=== PATIENT | female | born 1990 | race Caucasian/White ===

== ENCOUNTER 2017-01-15 14:08 | Emergency (ER) | payer SELFPAY ==
--- NOTE | 2017-01-15 15:13 | DIAGNOSTIC IMAGING REPORT ---
PROCEDURE: XR ANKLE 3 OR 4 VIEWS - LEFT INDICATION: TRAUMA/INJURY TECHNIQUE: Four views. COMPARISON: None. FINDINGS: No fracture or dislocation. Normal ankle mortise. Mild soft tissue swelling laterally. IMPRESSION: 1. Soft tissue swelling laterally.
--- NOTE | 2017-01-15 15:21 | ED CLINICAL REPORT ---
Clinical Report - Physicians/Mid Levels [facility] [address] [place] [address] 01/15/2017 14:10 [id number] Time Seen: 14:14 Jan 15 2017. Arrived- By private vehicle. Historian- patient. HISTORY OF PRESENT ILLNESS Chief Complaint: Injury to the left ankle. 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 The patient sustained a twisting injury. Patient is experiencing mild pain. Patient denies injury to the head or neck. (Twisting injury a few days prior to arrival. Reports pain and swelling. Has been elevating using ice. Has been utilizing a boot from the family. Reports a prior injury to the ankle. Pain worsens with ambulation. Reports swelling and ecchymosis has persisted.). REVIEW OF SYSTEMS The patient complains of pain on weight bearing. No tingling. All systems otherwise negative, except as recorded above. PAST HISTORY The patient has not had a prior injury to the same area. Problems: Bartholin's Abscess. Medications: None. Allergies: None. SOCIAL HISTORY Smoker- current status unknown. No drug use. ADDITIONAL NOTES The nursing notes have been reviewed. PHYSICAL EXAM Vital Signs: 01/15/2017 14:22 BP: 133/91. HR: 104. RR: 18. O2 saturation: 98%. Temp: 98.3 F. Appearance: Alert. No acute distress. Head: Head atraumatic. Eyes: Eyes normal inspection. ENT: Ears normal. CVS: Normal heart rate and rhythm. Heart sounds normal. Respiratory: No respiratory distress. Breath sounds normal. No accessory muscle use. Abdomen: No visible injury. Soft. Skin: Skin intact. Skin warm. Extremities: Left leg. No tenderness or laceration. Left medial ankle. No tenderness or laceration. Left anterior ankle: mild tenderness and swelling. Left posterior ankle. No tenderness or laceration. Left lateral ankle: moderate tenderness and swelling and small ecchymosis of the lateral ligaments. Joint effusion present. No ligamentous laxity present. No deformity. Left foot. No swelling or laceration. Base of the left 5th metatarsal: mild tenderness and swelling. No ecchymosis or puncture wound. (neg tho mpson test). No foot injury. Gait: Limping gait. Neuro, Vascular and Tendons: Vascular status intact. Motor intact. No tendon injury seen. LABS, X-RAYS, AND EKG Lt Ankle X-ray: (IMPRESSION: 1. Soft tissue swelling laterally. Electronically Final signed by:Eduin Longo MD 01/15/2017 3:12:46 PM). PROGRESS AND PROCEDURES Course of Care: Patient here in the ER with a negative x-ray. Able to a ambulate, had a boot on her ankle prior to arrival. No new injury for the last 3 days. Negative Clemons test. Instability of the lateral ligaments. No calcaneal tenderness. No other injuries. Patient is stable. Symptoms better. Patient/family counseled. Disposition: Discharged. Condition: good. CLINICAL IMPRESSION Sprain of the tibiofibular ligament of the left ankle. INSTRUCTIONS Apply ice. Wear boot orthosis. Elevate affected areas above chest level. You may walk and bear weight as tolerated. (activity as discussed IF NO PCP: [facility] Address: [address] [place] [address] ). Follow[facility]up with: [facility], , [address] [place] [address] Follow up if not well. Call for an appointment. Follow-up with: Alejandro Qiu DPM, Podiatry, , [facility], [address] [place] [address], [address] [address] (Electronically signed by Ingrid Ellington P.A.-C 01/15/2017 15:56)
--- NOTE | 2017-01-15 15:21 | ED NURSING NOTES ---
Clinical Report - Nurses [facility] [address] [place] [address] 01/15/2017 14:10 Patient: RUSS SEALS TRIAGE Triage time 14:17. Acuity: LEVEL 4. Chief Complaint: INJURY TO LEFT ANKLE. Alert. --14:20 Santa Dill R.N. 14:17 01/15/17. Pain level now 10. --14:20 Santa Dill R.N. 14:22 01/15/17. BP: 133/91. HR: 104. RR: 18. O2 saturation: 98%. Temp: 98.3 F. Pain level now 02/14. --14:22 Santa Dill R.N. Weight: 90.7 kg stated. Height/Length: 65 inches Per Patient. BMI: 33.3. --14:19 Santa Dill R.N. Medications None. --14:19 Santa Dill R.N. Allergies None. --14:19 Santa Dill R.N. History Arrived by private vehicle. Historian: patient. Primary physician (none). This occurred (about days ago). She has had trouble walking. 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 (boot). PAST MEDICAL HX: Tetanus status: up-to-date. SOCIAL HX: Current every day heavy tobacco smoker (cigarette)- less than 1 pack per day. Regular alcohol use. No drug use. --14:20 Santa Dill R.N. ( Stepped off the curb and rolled her left ankle). --14:23 Santa Dill R.N. PROBLEMS: Bartholin's Abscess. --14:19 Santa Dill R.N. PHYSICAL ASSESSMENT Ambulatory to room. GENERAL / NEURO / PSYCH: Oriented X 4. Alert. EXTREMITIES: Limited ROM present. Pain with weight bearing. Left medial ankle: tenderness and lateral ankle: tenderness and swelling. SKIN: Skin is warm and dry. --14:21 Santa Dill R.N. NURSING PROGRESS NOTES Patient identifiers checked. Call light placed in reach. Side rails up x 1. Patient ready for evaluation- PA notified. --14:21 Santa Dill R.N. DISPOSITION / DISCHARGE Departure time: 1540. Condition at departure: unchanged. No learning barriers present. Discharge instructions provided and reviewed with the patient. Patient verbalized understanding. The patient was discharged home and accompanied by family. She left the Emergency Department ambulatory and via private vehicle. Family member driving. --15:47 Santa Dill R.N. 15:46 01/15/17. BP: 116/78. HR: 78. RR: 16. O2 saturation: 99%. Pain level now 12/15. --15:47 Santa Dill R.N. Locked/Released at 01/15/2017 15:47 by Santa Dill R.N.
--- NOTE | 2017-01-15 15:21 | ED ORDER SUMMARY ---
..... Patient: RUSS SEALS OrderSheet [facility] VisitID: [id number] [address] [place] [address] 26y, F Registration Date/Time: 01/15/2017 ORDER SHEET Weight: 90.7 kg (stated) Allergies: None GENERAL ORDERS: Ankle 3 or 4V Left Urgent (14:28 01/15/2017 Erin Song) ([facility] 14:29 Kate) (14:40 Kate) MEDICATION ORDERS: IV FLUIDS: ORDER SHEET NOTES: [Electronically signed by Santa Dill R.N. (15:47 01/15/2017)] [Electronically signed by Ingrid Ellington P.A.-C (15:56 01/15/2017)] [Electronically locked/signed by Santa Dill R.N. (15:47 01/15/2017)]
--- NOTE | 2017-01-15 15:21 | ED ORDER SUMMARY ---
..... Patient: RUSS SEALS OrderSheet [facility] VisitID: [id number] [address] [place] [address] 26y, F Registration Date/Time: 01/15/2017 ORDER SHEET Weight: 90.7 kg (stated) Allergies: None GENERAL ORDERS: Ankle 3 or 4V Left Urgent (14:28 01/15/2017 Erin Song) ([facility] 14:29 Kate) (14:40 Kate) MEDICATION ORDERS: IV FLUIDS: ORDER SHEET NOTES: [Electronically signed by Santa Dill R.N. (15:47 01/15/2017)] [Electronically signed by Ingrid Ellington P.A.-C (15:56 01/15/2017)] [Electronically locked/signed by Santa Dill R.N. (15:47 01/15/2017)]
--- NOTE | 2017-01-15 15:21 | ED NURSING NOTES ---
Clinical Report - Nurses [facility] [address] [place] [address] 01/15/2017 14:10 Patient: RUSS SEALS TRIAGE Triage time 14:17. Acuity: LEVEL 4. Chief Complaint: INJURY TO LEFT ANKLE. Alert. --14:20 Santa Dill R.N. 14:17 01/15/17. Pain level now 10. --14:20 Santa Dill R.N. 14:22 01/15/17. BP: 133/91. HR: 104. RR: 18. O2 saturation: 98%. Temp: 98.3 F. Pain level now 02/14. --14:22 Santa Dill R.N. Weight: 90.7 kg stated. Height/Length: 65 inches Per Patient. BMI: 33.3. --14:19 Santa Dill R.N. Medications None. --14:19 Santa Dill R.N. Allergies None. --14:19 Santa Dill R.N. History Arrived by private vehicle. Historian: patient. Primary physician (none). This occurred (about days ago). She has had trouble walking. 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 PAST MEDICAL HX: Tetanus status: up-to-date. SOCIAL HX: Current every day heavy tobacco smoker (cigarette)- less than 1 pack per day. Regular alcohol use. No drug use. --14:20 Santa Dill R.N. ( Stepped off the curb and rolled her left ankle). --14:23 Santa Dill R.N. PROBLEMS: Bartholin's Abscess. --14:19 Santa Dill R.N. PHYSICAL ASSESSMENT Ambulatory to room. GENERAL / NEURO / PSYCH: Oriented X 4. Alert. EXTREMITIES: Limited ROM present. Pain with weight bearing. Left medial ankle: tenderness and lateral ankle: tenderness and swelling. SKIN: Skin is warm and dry. --14:21 Santa Dill R.N. NURSING PROGRESS NOTES Patient identifiers checked. Call light placed in reach. Side rails up x 1. Patient ready for evaluation- PA notified. --14:21 Santa Dill R.N. DISPOSITION / DISCHARGE Departure time: 1540. Condition at departure: unchanged. No learning barriers present. Discharge instructions provided and reviewed with the patient. Patient verbalized understanding. The patient was discharged home and accompanied by family. She left the Emergency Department ambulatory and via private vehicle. Family member driving. --15:47 Santa Dill R.N. 15:46 01/15/17. BP: 116/78. HR: 78. RR: 16. O2 saturation: 99%. Pain level now 12/15. --15:47 Santa Dill R.N. Locked/Released at 01/15/2017 15:47 by Santa Dill R.N.
--- NOTE | 2017-01-15 15:21 | ED CLINICAL REPORT ---
Clinical Report - Physicians/Mid Levels [facility] [address] [place] [address] 01/15/2017 14:10 [id number] Time Seen: 14:14 Jan 15 2017. Arrived- By private vehicle. Historian- patient. HISTORY OF PRESENT ILLNESS Chief Complaint: Injury to the left ankle. 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 The patient sustained a twisting injury. Patient is experiencing mild pain. Patient denies injury to the head or neck. (Twisting injury a few days prior to arrival. Reports pain and swelling. Has been elevating using ice. Has been utilizing a boot from the family. Reports a prior injury to the ankle. Pain worsens with ambulation. Reports swelling and ecchymosis has persisted.). REVIEW OF SYSTEMS The patient complains of pain on weight bearing. No tingling. All systems otherwise negative, except as recorded above. PAST HISTORY The patient has not had a prior injury to the same area. Problems: Bartholin's Abscess. Medications: None. Allergies: None. SOCIAL HISTORY Smoker- current status unknown. No drug use. ADDITIONAL NOTES The nursing notes have been reviewed. PHYSICAL EXAM Vital Signs: 01/15/2017 14:22 BP: 133/91. HR: 104. RR: 18. O2 saturation: 98%. Temp: 98.3 F. Appearance: Alert. No acute distress. Head: Head atraumatic. Eyes: Eyes normal inspection. ENT: Ears normal. CVS: Normal heart rate and rhythm. Heart sounds normal. Respiratory: No respiratory distress. Breath sounds normal. No accessory muscle use. Abdomen: No visible injury. Soft. Skin: Skin intact. Skin warm. Extremities: Left leg. No tenderness or laceration. Left medial ankle. No tenderness or laceration. Left anterior ankle: mild tenderness and swelling. Left posterior ankle. No tenderness or laceration. Left lateral ankle: moderate tenderness and swelling and small ecchymosis of the lateral ligaments. Joint effusion present. No ligamentous laxity present. No deformity. Left foot. No swelling or laceration. Base of the left 5th metatarsal: mild tenderness and swelling. No ecchymosis or puncture wound. (neg tho mpson test). No foot injury. Gait: Limping gait. Neuro, Vascular and Tendons: Vascular status intact. Motor intact. No tendon injury seen. LABS, X-RAYS, AND EKG Lt Ankle X-ray: (IMPRESSION: 1. Soft tissue swelling laterally. Electronically Final signed by:Eduin Longo MD 01/15/2017 3:12:46 PM). PROGRESS AND PROCEDURES Course of Care: Patient here in the ER with a negative x-ray. Able to a ambulate, had a boot on her ankle prior to arrival. No new injury for the last 3 days. Negative Clemons test. Instability of the lateral ligaments. No calcaneal tenderness. No other injuries. Patient is stable. Symptoms better. Patient/family counseled. Disposition: Discharged. Condition: good. CLINICAL IMPRESSION Sprain of the tibiofibular ligament of the left ankle. INSTRUCTIONS Apply ice. Wear boot orthosis. Elevate affected areas above chest level. You may walk and bear weight as tolerated. (activity as discussed IF NO PCP: [facility] Address: [address] [place] [address] ). Follow-up with: [facility], , [address] [address] Follow up if not well. Call for an appointment. Follow-up with: Alejandro Qiu DPM, Podiatry, , [facility], [address] [place] [address], [address] [address] (Electronically signed by Ingrid Ellington P.A.-C 01/15/2017 15:56)
--- NOTE | 2017-01-15 15:56 | ED MAR SUMMARY ---
..... Medication Administration Record [facility] [address] [place], [place] [id number] Patient: RUSS SEALS Visit ID: [id number] 26y, F Weight: 90.7 kg Height/Length: 65 in BMI: 33.3 ALLERGIES: None
--- NOTE | 2017-01-15 15:56 | ED MAR SUMMARY ---
..... Medication Administration Record [facility] [address] [place], [place] [id number] Patient: RUSS SEALS Visit ID: [id number] 26y, F Weight: 90.7 kg Height/Length: 65 in BMI: 33.3 ALLERGIES: None
--- NOTE | 2017-01-15 15:56 | ED DISCHARGE INSTRUCTIONS ---
Patient: RUSS SEALS General Instructions [facility] VisitID: [id number] [address] [place], [place] [id number] 26y, F Registration Date/Time: 01/15/2017 Sprain of the tibiofibular ligament of the left ankle. INSTRUCTIONS Apply ice. Wear boot orthosis. Elevate affected areas above chest level. You may walk and bear weight as tolerated. (activity as discussed IF NO PCP: [facility] Address: [address] [place] [id number] ). Follow-up with: [facility], , [address], [place] [address] Follow up if not well. Call for an appointment. Follow-up with: Alejandro Qiu DPM, Podiatry, , [facility], [address] [place] [address], [address], [place] [address] ADDITIONAL INFORMATION Sprain, Ankle,With X-Ray A sprain is an injury to the ligaments or capsule that holds a joint together. There are no broken bones. Most sprains take from four to six weeks to heal. If the ligament is completely torn (severe sprain), it can take several months to recover. Mild to moderate sprains may be treated with an elastic wrap or an in-shoe splint to provide support and prevent re-injury. A mild sprain may not require any additional support. A severe sprain may require surgery to repair. Home care The following guidelines will help you care for your injury at home: Stay off the injured leg as much as possible until you can walk on it without pain. If you have a lot of pain with walking, crutches or a walker may be prescribed. (These can be rented or purchased at many pharmacies and surgical or orthopedic supply stores). Follow your doctor's advice regarding when to begin bearing weight on that leg. Keep your leg elevated to reduce pain and swelling. When sleeping, place a pillow under the injured leg. When sitting, support the injured leg so it is level with your waist. This is very important during the first 48 hours. Apply an ice pack (ice cubes in a plastic bag, wrapped in a towel) over the injured area for 20 minutes every 12 hours the first day. You can place the ice pack directly over the splint/cast. If you were given a boot, open it to apply the ice pack. Continue with ice packs 34 times a day for the next two days, then as needed for the relief of pain and swelling. You may use acetaminophen or ibuprofen to control pain, unless another pain medicine was prescribed. If you have chronic liver or kidney disease or ever had a stomach ulcer or GI bleeding, talk with your doctor before using these medicines. You may return to sports after healing, when you can run without pain. A sprained ankle is at risk for re-injury during the first six weeks. During that time, protect your ankle with an in-shoe splint that prevents tilting of your ankle from side to side. This is very important if you do active work or play sports during that time. Follow-up care Any X-rays you had today dont show any broken bones, breaks, or fractures. Sometimes fractures dont show up on the first X-ray. Bruises and sprains can sometimes hurt as much as a fracture. These injuries can take time to heal completely. If your symptoms dont improve or they get worse, talk with your doctor. You may need a repeat X-ray. When to seek medical care Get prompt medical attention if any of the following occur: The plaster cast or splint gets wet or soft The fiberglass cast or splint gets wet and does not dry for 24 hours Pain or swelling increases, or redness appears Toes become cold, blue, numb or tingly Re-injure your ankle Aircast Sp-Walker Boot Traditional splints and casts for the foot and ankle protect the injury by preventing movement at the joints. However, many injuries heal better and faster if the injured joint can be moved, while protected at the same time. This is the reason for using an Aircast Walker boot. This is a short boot that provides support and protection to the foot and ankle while allowing you to walk. It contains padded air cells that provide compression and help circulation. It is used for both foot and ankle injuries - both sprains and minor fractures. Ankle and foot sprains can take 4-6 weeks to heal. Persons with severe injuries or over age 60 may require more time to heal. During that time, you are prone to re-injury by suddenly twisting your foot or ankle again while the ligaments are still weak. When treating a sprain, the Vend Walker boot should be worn whenever walking for at least four weeks, or as long as you continue to have ankle pain. Talk to your doctor for specific advice about the treatment of your condition. Air-Stirrup and SP-Walker are trademarks of [employer]. For more information about their products, see www.[employer]. You have been given the following additional information: Sprain, Ankle, With X-Ray Walker Boot You may walk and bear weight as tolerated. (Electronically signed by Ingrid Ellington P.A.-C 01/15/2017 15:56)
--- NOTE | 2017-01-15 15:56 | ED MED RECONCILIATION SUMMARY ---
Patient: RUSS SEALS Medication Reconciliation Report [facility] VisitID: [id number] [address] [place] [address] 26y, F Registration Date/Time: 01/15/2017 Weight: 90.7 kg Height/Length: 65 in. BMI: 33.3 ALLERGIES: None The patient's Home Medications are listed below: NONE. The source(s) of the original Home Medication information: Not obtained. The following Medications were given to the patient in the Emergency Department: None. The following Medications were prescribed to the patient: None.
--- NOTE | 2017-01-15 15:56 | ED MED RECONCILIATION SUMMARY ---
Patient: RUSS SEALS Medication Reconciliation Report [facility] VisitID: [id number] [address] [place] [address] 26y, F Registration Date/Time: 01/15/2017 Weight: 90.7 kg Height/Length: 65 in. BMI: 33.3 ALLERGIES: None The patient's Home Medications are listed below: NONE. The source(s) of the original Home Medication information: Not obtained. The following Medications were given to the patient in the Emergency Department: None. The following Medications were prescribed to the patient: None.
--- NOTE | 2017-01-15 15:56 | ED DISCHARGE INSTRUCTIONS ---
Patient: RUSS SEALS General Instructions [facility] VisitID: [id number] [address] [place], [place] [id number] 26y, F Registration Date/Time: 01/15/2017 Sprain of the tibiofibular ligament of the left ankle. INSTRUCTIONS Apply ice. Wear boot orthosis. Elevate affected areas above chest level. You may walk and bear weight as tolerated. (activity as discussed IF NO PCP: [facility] Address: [address] [place] [id number] ). Follow-up with: [facility], [facility], , [address], [place] [address] Follow up if not well. Call for an appointment. Follow-up with: Alejandro Qiu DPM, Podiatry, , [facility], [address] [place] [address], [address], [place] [address] ADDITIONAL INFORMATION Sprain, Ankle,With X-Ray A sprain is an injury to the ligaments or capsule that holds a joint together. There are no broken bones. Most sprains take from four to six weeks to heal. If the ligament is completely torn (severe sprain), it can take several months to recover. Mild to moderate sprains may be treated with an elastic wrap or an in-shoe splint to provide support and prevent re-injury. A mild sprain may not require any additional support. A severe sprain may require surgery to repair. Home care The following guidelines will help you care for your injury at home: Stay off the injured leg as much as possible until you can walk on it without pain. If you have a lot of pain with walking, crutches or a walker may be prescribed. (These can be rented or purchased at many pharmacies and surgical or orthopedic supply stores). Follow your doctor's advice regarding when to begin bearing weight on that leg. Keep your leg elevated to reduce pain and swelling. When sleeping, place a pillow under the injured leg. When sitting, support the injured leg so it is level with your waist. This is very important during the first 48 hours. Apply an ice pack (ice cubes in a plastic bag, wrapped in a towel) over the injured area for 20 minutes every 12 hours the first day. You can place the ice pack directly over the splint/cast. If you were given a boot, open it to apply the ice pack. Continue with ice packs 34 times a day for the next two days, then as needed for the relief of pain and swelling. You may use acetaminophen or ibuprofen to control pain, unless another pain medicine was prescribed. If you have chronic liver or kidney disease or ever had a stomach ulcer or GI bleeding, talk with your doctor before using these medicines. You may return to sports after healing, when you can run without pain. A sprained ankle is at risk for re-injury during the first six weeks. During that time, protect your ankle with an in-shoe splint that prevents tilting of your ankle from side to side. This is very important if you do active work or play sports during that time. Follow-up care Any X-rays you had today dont show any broken bones, breaks, or fractures. Sometimes fractures dont show up on the first X-ray. Bruises and sprains can sometimes hurt as much as a fracture. These injuries can take time to heal completely. If your symptoms dont improve or they get worse, talk with your doctor. You may need a repeat X-ray. When to seek medical care Get prompt medical attention if any of the following occur: The plaster cast or splint gets wet or soft The fiberglass cast or splint gets wet and does not dry for 24 hours Pain or swelling increases, or redness appears Toes become cold, blue, numb or tingly Re-injure your ankle Aircast Sp-Walker Boot Traditional splints and casts for the foot and ankle protect the injury by preventing movement at the joints. However, many injuries heal better and faster if the injured joint can be moved, while protected at the same time. This is the reason for using an Aircast Walker boot. This is a short boot that provides support and protection to the foot and ankle while allowing you to walk. It contains padded air cells that provide compression and help circulation. It is used for both foot and ankle injuries - both sprains and minor fractures. Ankle and foot sprains can take 4-6 weeks to heal. Persons with severe injuries or over age 60 may require more time to heal. During that time, you are prone to re-injury by suddenly twisting your foot or ankle again while the ligaments are still weak. When treating a sprain, the [employer] Walker boot should be worn whenever walking for at least four weeks, or as long as you continue to have ankle pain. Talk to your doctor for specific advice about the treatment of your condition. Air-Stirrup and SP-Walker are trademarks of [employer]. For more information about their products, see [email or web address]. You have been given the following additional information: Sprain, Ankle, With X-Ray Walker Boot You may walk and bear weight as tolerated. (Electronically signed by Ingrid Ellington P.A.-C 01/15/2017 15:56)
== END 2017-01-15 15:40 | disposition home or self-care (01) ==
LOC: ED SRH 14:08
DX: S93.432A Sprain of tibiofibular ligament of left ankle, initial encounter (principal); X50.1XXA Overexertion from prolonged static or awkward postures, initial encounter; Y93.89 Activity, other specified; Y92.009 Unspecified place in unspecified non-institutional (private) residence as the place of occurrence of the external cause; Y99.8 Other external cause status